=== PATIENT | male | born 1945 | race Native Hawaiian/Other Pacific Islander ===

== ENCOUNTER 2017-02-15 15:23 | Emergency (ER) | payer OTHER, MEDICARE ==
[~2017-02-15] VITALS: Ht 182.9 cm; Wt 136.1 kg
[~2017-02-15 15:23] MED LIST: ASA LO-DOSE81 MG PO; CLONIDINE0.1 MG PO; FURO40TA93 PO; GLIP10TA66 PO; KLOR-CON M2020 MEQ PO; LANTUS100 MG/ML SC; LISI20TA11 PO; METF500T PO; METO5TAB38 PO; NOVOLOG100 MG/ML SC; WELCHOL625 MG PO
== END 2017-02-15 16:19 | disposition home or self-care (01) ==
LOC: ED 15:23
DX: Z48.01 Encounter for change or removal of surgical wound dressing (principal)
CPT/HCPCS: 99281